=== PATIENT | female | born 1985 | race Caucasian/White ===

== ENCOUNTER 2019-11-26 21:47 | Inpatient (IN) | payer MEDICARE ==
[~2019-11-26] VITALS: Ht 162.6 cm; Wt 98.6 kg
--- NOTE | 2019-11-26 21:53 | PHYS DOC ---
Past History Past Medical History: Anemia, Anxiety, High Cholesterol, Other Past Surgical History: Hysterectomy Smoking: Cigarettes General Adult EDM: Chief Complaint: CHEST PAIN HPI: HPI: ".. I ve been having chest pain off and on.. but today it been narciso steady.. the last 4 hrs.. ..My chest just feels tight.. ".." It feel s like someone squeezing my chest.." Patient is a 34 year old female who presents with above complaints and chest pain. No previous history of cardiac problems. Patient discomfort or pain is rated as moderate. There is some mild pleuritic component. Pain is located in center chest and seen radiates to the shoulders. Patient denies previous history of DVTs or coagulopathy. Patient did have a hysterectomy approximately 3 weeks ago at [facility]. No active bleeding postatherectomy. Suture sites appear to be healing well. 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 No history of travel .. No history of fever or chills. No recent travel outside the [facility]. Review of Systems: Review of Systems: Constitutional: Denies fever or chills Eyes: Denies change in visual acuity HENT: Denies nasal congestion or sore throat Respiratory: Denies cough or shortness of breath Cardiovascular: Complaints of chest pain , tightness GI: Denies abdominal pain, nausea, vomiting, bloody stools or diarrhea : Denies dysuria Musculoskeletal: Denies back pain or joint pain Integument: Denies rash Neurologic: Denies headache, focal weakness or sensory changes Endocrine: Denies polyuria or polydipsia Lymphatic: Denies swollen glands Psychiatric: Denies depression or anxiety Heart Score: HEART Score for Chest Pain: HEART Score for Chest Pain Response (Comments) Value History Slighlty/Non-Suspicious 0 ECG Nonspecific Repolarizatio 1 Age < 45 0 Risk Factors 1 or 2 Risk Factors 1 Troponin < Normal Limit 0 Total 2 Risk Factors: Risk Factors: DM, Current or recent (<one month) smoker, HTN, HLP, family history of CAD, obesity. Risk Scores: Score 0 - 3: 2.5% MACE over next 6 weeks - Discharge Home Score 4 - 6: 20.3% MACE over next 6 weeks - Admit for Clinical Observation Score 7 - 10: 72.7% MACE over next 6 weeks - Early Invasive Strategies Family History: Family History: Noncontributory to presentation Current Medications: Current Meds: See nursing for home meds. Allergies: Allergies: Morphine makes her angry Physical Exam: PE: Constitutional: Moderate acute distress, non-toxic appearance. [] HENT: Normocephalic, atraumatic, bilateral external ears normal, oropharynx moist, no oral exudates, nose normal. [] Eyes: PERRLA, EOMI, conjunctiva normal, no discharge. [] Neck: Normal range of motion, no tenderness, supple, no stridor. [] Cardiovascular: Tachycardia heart rate regular rhythm, no murmur [] Lungs & Thorax: Bilateral breath sounds equal apex few scattered wheezes auscultation [] Abdomen: Bowel sounds normal, soft, no tenderness, no masses, no pulsatile masses. Obese. Healing surgery sites Skin: Warm, dry, no erythema, no rash. [] Back: No tenderness, no CVA tenderness. [] Extremities: No tenderness, no cyanosis, no clubbing, ROM intact, no edema. No cording appreciated Neurologic: Alert and oriented X 3, normal motor function, normal sensory function, no focal deficits noted. [] Psychologic: Affect anxious, judgement normal, mood normal. [] EKG: EKG: My interpretation of EKG shows a sinus rhythm at 92 bpm. Nonspecific T wave changes inferior leads. No findings acute STEMI with contralateral changes. [] Radiology/Procedures: Radiology/Procedures: [][place] [address] IMAGING REPORT Signed PATIENT: ROBI OTTO ACCOUNT: [id number] : 1985 LOCATION: [address] [place] [address] AGE: 34 SEX: F EXAM STATUS: ADM IN ORD. PHYSICIAN: SHANI GARCIA MD REASON: CP, shortness of air PROCEDURE: CHEST PA & LATERAL INDICATION: Reason: CP, shortness of air / Spl. Instructions: / History: COMPARISON: None. FINDINGS: 2 view of chest obtained. Mild interstitial and groundglass opacities bilaterally. Cardiac silhouette is unremarkable. IMPRESSION: * Mild interstitial and groundglass opacities bilaterally. Could be from mild edema or interstitial infiltrate. Electronically signed by: Laurie Wayne MD (11/27/2019 3:46 AM) [id number] DICTATED AND SIGNED BY: LAURIE WAYNE MD DATE: 11/27/19 0346 CC: SHANI GARCIA MD; ALEXANDER KIRBY MD; TANG REEVES MD ~ [address] [place] [id number] IMAGING REPORT Signed PATIENT: ROBI OTTO ACCOUNT: [id number] : 1985 LOCATION: ER AGE: 34 SEX: F EXAM STATUS: REG ER ORD. PHYSICIAN: SHANI GARCIA MD REASON: DYSPNEA, CP Omni 350 100cc PROCEDURE: CT ANGIOGRAPHY CHEST INDICATION: Reason: DYSPNEA, CP Omni 350 100cc / Spl. Instructions: / History: COMPARISON: None. TECHNIQUE: Axial CT images obtained through the chest. Intravenous contrast utilized. Angiogram 3D images processed per protocol. One or more of the following individualized dose reduction techniques were utilized for this examination: 1. Automated exposure control; 2. Adjustment of the mA and/or kV according to patient size; 3. Use of iterative reconstruction technique. FINDINGS: Mild interstitial opacities. There is also some mild groundglass component. Regions of nodularity most prominent at the lung bases. Enlarged lymph nodes are identified within the mediastinum and hilum. For example right hilum measuring up to 15 mm short axis. No thoracic aortic aneurysm. No central pulmonary embolus. Some subsegmental vessels are obscured by motion and small vessel size. Mild loss of height T12 vertebral body. IMPRESSION: No central pulmonary embolus. Mild interstitial opacities and groundglass opacities bilaterally. Could be secondary to mild edema. A component of small airway inflammation from pneumonitis can also have this appearance. Course & Med Decision Making: Course & Med Decision Making Pertinent Labs and Imaging studies reviewed. (See chart for details) Discussed presentation, testing and tx. plan with Dr. KIRBY- request COVID swab. Admit rule out GA and Atypical Pneumonia. Impression: 1. Chest Pain 2. Elevated D-dimer 1.,88 3. Hx. Hysterectomy - 3 weeks ago-OPR 4. Leukocytosis 11.7 5. Mild Hypokalemia 3.3 6. DM Glucose 121 7. Mediastinal adenopathy and atypical infiltrate-atypical pneumonia 8. Tobacco use 9. Obesity 10. COVID test pending [] Dragon Disclaimer: Dragon Disclaimer: This electronic medical record was generated, in whole or in part, using a voice recognition dictation system. Departure Departure: Disposition: 01 HOME/RESIDENCE PRIOR TO ADM Condition: STABLE Referrals: TANG REEVES MD (PCP) Justification of Admission: Justification of Admission: Justification of Admission Dx: Yes Comments: chest pain Dragon Disclaimer This chart was dictated in whole or in part using Voice Recognition software in a busy, high-work load, and often noisy Emergency Department environment. It may contain unintended and wholly unrecognized errors or omissions. Dragon Disclaimer This chart was dictated in whole or in part using Voice Recognition software in a busy, high-work load, and often noisy Emergency Department environment. It may contain unintended and wholly unrecognized errors or omissions. SHANI GARCIA MD Nov 26, 2019 21:53
[2019-11-26] MEDS ORDERED: IV RINGERS SOLUTION,LACTATED 1,000 ML IV SCH (22:15)
[2019-11-26] MEDS ORDERED: ASPIRIN CHEWABLE 81 MG TABLET. PO ONE (22:15)
[2019-11-26 22:22] LABS: BASO # 0.1 x10^3/uL (0.0-0.2); BASO % 0 % (0-3); EOS % 8 % (0-3); HEMOGLOBIN 13.3 g/dL (12.0-15.5); LYMPH # 3.2 x10^3/uL (1.0-4.8); LYMPH % 27 % (24-48); MEAN CORPUSCULAR HEMOGLOBIN 30 pg (25-35); MEAN CORPUSCULAR HGB CONC 33 g/dL (31-37); MEAN CORPUSCULAR VOLUME 89 fL (79-100); MONO # 0.9 x10^3/uL (0.0-1.1); MONO % 8 % (0-9); NEUT # 6.6 x10^3uL (1.8-7.7); NEUT % 57 % (31-73); PLATELET COUNT 274 x10^3/uL (140-400); RED BLOOD COUNT 4.51 x10^6/uL (3.50-5.40); WHITE BLOOD COUNT 11.7 x10^3/uL (4.0-11.0)
[2019-11-26 22:25] LABS: CALCIUM 8.5 mg/dL (8.5-10.1); CREATININE 0.7 mg/dL (0.6-1.0); GFR 94.7; POTASSIUM 3.3 mmol/L (3.5-5.1)
[2019-11-26 22:37] LABS: ALBUMIN 3.5 g/dL (3.4-5.0); DIRECT BILIRUBIN 0.1 mg/dL (0.0-0.2); TOTAL BILIRUBIN 0.4 mg/dL (0.2-1.0); TOTAL PROTEIN 7.5 g/dL (6.4-8.2)
[2019-11-26 23:24] LABS: AMPHETAMINE/METHAMPHETAMINE NEG (NEG); BARBITURATES NEG (NEG); BENZODIAZEPINES NEG (NEG); CANNABINOIDS NEG (NEG); COCAINE NEG (NEG); METHADONE NEG (NEG); OPIATES NEG (NEG); PHENCYCLIDINE NEG (NEG)
[2019-11-26 23:38] LABS: BILIRUBIN,URINE NEG (NEG); CLARITY,URINE CLEAR; COLOR,URINE YELLOW; GLUCOSE,URINE NEG (NEG)
[2019-11-26 23:39] LABS: BACTERIA,URINE FEW /HPF (0-FEW); NITRITE,URINE NEG (NEG); SQUAMOUS EPITHELIAL CELL,UR MOD /LPF; UROBILINOGEN,URINE 0.2 mg/dL (0.2 mg/dL); WBC,URINE 0 /HPF (0-4)
[2019-11-26] MEDS ORDERED: ENOXAPARIN ** NOTE DOSE ** SYRINGE SQ ONE (23:54)
[2019-11-26] MEDS ORDERED: MORPHINE SULFATE 10 MG/ML SYRINGE. ONE (23:55)
[2019-11-27] MEDS ORDERED: ENOXAPARIN ** NOTE DOSE ** SYRINGE SQ ONE
[2019-11-27] MEDS ORDERED: MORPHINE SULFATE 10 MG/ML SYRINGE. SQ ONE
[2019-11-27] MEDS ORDERED: IOHEXOL 350 MG/ML 100 ML VIAL. IV ONE (00:15)
[2019-11-27] MEDS ORDERED: CONTRAST GIVEN. MC PRN (00:15)
--- NOTE | 2019-11-27 01:01 | RAD ---
INDICATION: Reason: DYSPNEA, CP Omni 350 100cc / Spl. Instructions: / History: COMPARISON: None. TECHNIQUE: Axial CT images obtained through the chest. Intravenous contrast utilized. Angiogram 3D images processed per protocol. One or more of the following individualized dose reduction techniques were utilized for this examination: 1. Automated exposure control; 2. Adjustment of the mA and/or kV according to patient size; 3. Use of iterative reconstruction technique. FINDINGS: Mild interstitial opacities. There is also some mild groundglass component. Regions of nodularity most prominent at the lung bases. Enlarged lymph nodes are identified within the mediastinum and hilum. For example right hilum measuring up to 15 mm short axis. No thoracic aortic aneurysm. No central pulmonary embolus. Some subsegmental vessels are obscured by motion and small vessel size. Mild loss of height T12 vertebral body. IMPRESSION: No central pulmonary embolus. Mild interstitial opacities and groundglass opacities bilaterally. Could be secondary to mild edema. A component of small airway inflammation from pneumonitis can also have this appearance. There are some regions of nodularity within the bilateral lungs. In a patient of this age this is most commonly from round atelectasis or round pneumonia but if the patient does have risk factors for neoplasm a follow-up could be obtained to ensure no growth. Enlarged lymph nodes in the mediastinum. Could be reactive but follow-up could be obtained to ensure no growth to exclude neoplastic causes. Electronically signed by: Soy Rivera MD (11/27/2019 12:58 AM) [id number]
[2019-11-27] MEDS ORDERED: ACETAMINOPHEN 325 MG TABLET PO PRN (01:15)
[2019-11-27] MEDS ORDERED: AZITHROMYCIN 250 MG TABLET. PO ONE (01:30)
[2019-11-27] MEDS ORDERED: cefTRIAXone SODIUM 1 GM VIAL ONE (02:17)
[2019-11-27] MEDS ORDERED: IV NORMAL SALINE 50ML 50 ML ONE (02:17)
--- NOTE | 2019-11-27 03:49 | RAD ---
INDICATION: Reason: CP, shortness of air / Spl. Instructions: / History: COMPARISON: None. FINDINGS: 2 view of chest obtained. Mild interstitial and groundglass opacities bilaterally. Cardiac silhouette is unremarkable. IMPRESSION: * Mild interstitial and groundglass opacities bilaterally. Could be from mild edema or interstitial infiltrate. Electronically signed by: Soy Rivera MD (11/27/2019 3:46 AM) [id number]
[2019-11-27] MEDS ORDERED: IPRATRPIUM/ALBUTEROL 0.5/2.5MG 3 ML NEBU. ONE (04:43)
[2019-11-27] MEDS ORDERED: POTASSIUM CHLORIDE 20 MEQ TABLET.ER. PO ONE ×2 (07:10→13:30)
--- NOTE | 2019-11-27 07:20 | EKG ---
[address] [address] Test Date: 2019-11-26 Test Time: 21:53:02 Pat Name: ROBI OTTO Department: Room: [place] [address] Gender: F Release Coordinator: : 1985 Requested By: SHANI GARCIA Order Number: [id number] Reading MD: Malcolm Vasquez MD Measurements Intervals [place] Rate: 92 P: 15 SD: 150 QRS: 38 QRSD: 80 T: -43 QT: 326 QTc: 408 Interpretive Statements SINUS RHYTHM Electronically Signed On 11-27-2019 12:36:07 CDT by Malcolm Vasquez MD
--- NOTE | 2019-11-27 07:45 | NUR ---
PT ARRIVED TO UNIT VIA EMS. PATIENT IS PLEASANT AND COOPERATIVE AT ADMISSION. PTS VS OBTAINED AND ARE STABLE. PATIENT IS OFFERED FOOD AND DRINK AND ACCEPTS. PT STARTED ON REGULAR DIET. DR WRIGHT NOTIFIED OF ADMISSION AND ORDERERS RECEIVED FOR 75MCG OF FENTANYL PRN Q4H, LOVENOX 40MG DAILY FOR VTE PROPHYLAXIS, AND ZOFRAN 4MG PRN Q6H NEEDED FOR NAUSEA. PATIENT IS RESTING IN ROOM AT THIS TIME. SECOND TROP TO BE DRAWN AT 0845. PT IS IN COVID PRECAUTIONS. WILL CONTINUE TO MONITOR.
[2019-11-27] MEDS ORDERED: ASPIRIN CHEWABLE 81 MG TABLET. PO ONE (08:00)
[2019-11-27] MEDS ORDERED: IPRATRPIUM/ALBUTEROL 0.5/2.5MG 3 ML NEBU. NEB SCH (08:00)
--- NOTE | 2019-11-27 08:43 | PDOC2 ---
CARDIAC CONSULT DATE OF CONSULT DOS: DATE: 11/27/19 TIME: 08:39 REASON FOR CONSULT Reason for Consult CP REFERRING PHYSICIAN Referring Physician Dr. Moore SOURCE Source: Chart review, Patient HPI History of Present Illness This is a 34 yo female who presented secondary to chest tightness. Inability to take a deep breath. Patient reports this started yesterday. Chest tightness worse with deep breathing. Chest slightly tender upon palpitation. No associated dizziness, diaphoresis, palpitations, or nausea/vomiting. Doesnt necessarily feel SOA, just feels as if she cannot take a deep breath. No recent fevers or illness. CT chest with bilateral infiltrates. 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 ) Lives: with Family CURRENT MEDICATIONS Current Medications Current Medications Aspirin (Aspirin Chewable) 324 mg 1X ONCE PO Last administered on 11/26/19at 23:48; Start 11/26/19 at 22:15; Stop 11/26/19 at 22:38; Status DC Lactated Ringer's 1,000 ml @ 1,000 mls/hr Q1H IV Last administered on 11/27/19at 00:11; Start 11/26/19 at 22:15; Stop 11/26/19 at 23:14; Status DC Enoxaparin Sodium (Lovenox 100mg Syringe) 100 mg STK-MED ONCE SQ ; Start 11/26/19 at 23:54; Stop 11/26/19 at 23:54; Status DC Morphine Sulfate (Morphine 10mg Syringe) 10 mg 1X ONCE SQ ; Start 11/27/19 at 00:00; Stop 11/27/19 at 00:01; Status DC Enoxaparin Sodium (Lovenox 100mg Syringe) 100 mg 1X ONCE SQ Last administered on 11/27/19at 00:12; Start 11/27/19 at 00:00; Stop 11/27/19 at 00:02; Status DC Morphine Sulfate (Morphine 10mg Syringe) 10 mg STK-MED ONCE .ROUTE ; Start 11/26/19 at 23:55; Stop 11/26/19 at 23:55; Status DC Iohexol (Omnipaque 350 Mg/ml) 100 ml 1X ONCE IV Last administered on 11/27/19at 00:20; Start 11/27/19 at 00:15; Stop 11/27/19 at 00:16; Status DC Info (Do NOT chart on this entry -- for MONITORING) 1 each PRN DAILY PRN MC SEE COMMENTS; Start 11/27/19 at 00:15; Stop 11/29/19 at 00:14 Fentanyl Citrate (Fentanyl 2ml Vial) 75 mcg 1X ONCE IVP Last administered on 11/27/19at 00:13; Start 11/27/19 at 00:15; Stop 11/27/19 at 01:03; Status DC Ondansetron HCl (Zofran) 4 mg PRN Q4HRS PRN IVP NAUSEA/VOMITING; Start 11/27/19 at 01:15; Stop 11/28/19 at 01:14 Acetaminophen (Tylenol) 650 mg PRN Q4HRS PRN PO FEVER > 100.3'F; Start 11/27/19 at 01:15; Stop 11/28/19 at 01:14 Albuterol/ Ipratropium (Duoneb) 3 ml RTQID NEB ; Start 11/27/19 at 08:00; Stop 11/27/19 at 07:26; Status DC Aspirin (Aspirin Chewable) 81 mg DAILYWBKFT ONCE PO ; Start 11/27/19 at 08:00; Stop 11/27/19 at 08:01; Status DC Azithromycin (Zithromax) 250 mg DAILY PO ; Start 11/27/19 at 09:00; Status UNV Enoxaparin Sodium (Lovenox 100mg Syringe) 100 mg Q12H SQ ; Start 11/27/19 at 12:00 Azithromycin (Zithromax) 250 mg HS PO ; Start 11/27/19 at 21:00 Azithromycin (Zithromax) 500 mg 1X ONCE PO Last administered on 11/27/19at 02:20; Start 11/27/19 at 01:30; Stop 11/27/19 at 01:31; Status DC Ceftriaxone Sodium 1 gm/ Sodium Chloride 50 ml @ 100 mls/hr 1X ONCE IV Last administered on 11/27/19at 02:20; Start 11/27/19 at 01:30; Stop 11/27/19 at 01:59; Status DC Sodium Chloride 50 ml @ As Directed STK-MED ONCE .ROUTE ; Start 11/27/19 at 02:17; Stop 11/27/19 at 02:17; Status DC Ceftriaxone Sodium (Rocephin) 1 gm STK-MED ONCE .ROUTE ; Start 11/27/19 at 02:17; Stop 11/27/19 at 02:17; Status DC Albuterol/ Ipratropium (Duoneb) 3 ml STK-MED ONCE .ROUTE ; Start 11/27/19 at 04:43; Stop 11/27/19 at 04:43; Status DC Nicotine (Nicoderm Cq 21mg Patch) 1 patch DAILY TD ; Start 11/27/19 at 07:15 Potassium Chloride (Klor-Con) 40 meq 1X ONCE PO Last administered on 11/27/19at 07:24; Start 11/27/19 at 07:10; Stop 11/27/19 at 07:11; Status DC Albuterol/ Ipratropium (Combivent Respimat 20-100 Mcg) 1 puff RTQID INH ; Start 11/27/19 at 08:00 ALLERGIES Allergies: Coded Allergies: morphine (Verified Allergy, Unknown, 11/27/19) ROS Review of Systems 14 point ROS conducted with pertinent positives noted above in hPI PHYSICAL EXAM General: Alert, Oriented X3, Cooperative, No acute distress HEENT: Atraumatic Heart: Regular rate Abdomen: Soft Extremities: No edema Neuro: Normal speech Psych/Mental Status: Mental status NL, Mood NL MUSCULOSKELETAL: No deformity VITALS Vital Signs Vital Signs Date Time Temp Pulse Resp B/P (MAP) Pulse Ox O2 Delivery O2 Flow Rate FiO2 11/27/19 06:30 78 14 125/67 (86) 96 Room Air 11/26/19 21:50 99.0 LABS LABS Laboratory Tests Test 11/26/19 21:55 11/26/19 22:30 11/26/19 22:49 White Blood Count 11.7 x10^3/uL (4.0-11.0) Red Blood Count 4.51 x10^6/uL (3.50-5.40) Hemoglobin 13.3 g/dL (12.0-15.5) Hematocrit 40.0 % (36.0-47.0) Mean Corpuscular Volume 89 fL (79-100) Mean Corpuscular Hemoglobin 30 pg (25-35) Mean Corpuscular Hemoglobin Concent 33 g/dL (31-37) Red Cell Distribution Width 15.0 % (11.5-14.5) Platelet Count 274 x10^3/uL (140-400) Neutrophils (%) (Auto) 57 % (31-73) Lymphocytes (%) (Auto) 27 % (24-48) Monocytes (%) (Auto) 8 % (0-9) Eosinophils (%) (Auto) 8 % (0-3) Basophils (%) (Auto) 0 % (0-3) Neutrophils # (Auto) 6.6 x10^3uL (1.8-7.7) Lymphocytes # (Auto) 3.2 x10^3/uL (1.0-4.8) Monocytes # (Auto) 0.9 x10^3/uL (0.0-1.1) Eosinophils # (Auto) 1.0 x10^3/uL (0.0-0.7) Basophils # (Auto) 0.1 x10^3/uL (0.0-0.2) Prothrombin Time 9.7 SEC (9.4-11.4) Prothromb Time International Ratio 0.9 (0.9-1.1) Activated Partial Thromboplast Time 28 SEC (23-33) D-Dimer (Rose) 1.88 mg/L (0.00-0.50) Sodium Level 139 mmol/L (136-145) Potassium Level 3.3 mmol/L (3.5-5.1) Chloride Level 102 mmol/L (98-107) Carbon Dioxide Level 23 mmol/L (21-32) Anion Gap 14 (6-14) Blood Urea Nitrogen 8 mg/dL (7-20) Creatinine 0.7 mg/dL (0.6-1.0) Estimated GFR (Cockcroft-Gault) 94.7 Glucose Level 121 mg/dL (70-99) Calcium Level 8.5 mg/dL (8.5-10.1) Magnesium Level 2.0 mg/dL (1.8-2.4) Total Bilirubin 0.4 mg/dL (0.2-1.0) Direct Bilirubin 0.1 mg/dL (0.0-0.2) Aspartate Amino Transf (AST/SGOT) 14 U/L (15-37) Alanine Aminotransferase (ALT/SGPT) 26 U/L (14-59) Alkaline Phosphatase 148 U/L (46-116) Creatine Kinase 60 U/L (26-192) Troponin I Quantitative < 0.017 ng/mL (0-0.055) VX-Tkz-I-Type Natriuretic Peptide 197 pg/mL (0-124) Total Protein 7.5 g/dL (6.4-8.2) Albumin 3.5 g/dL (3.4-5.0) Lipase 142 U/L (73-393) Urine Collection Type Unknown Urine Color Yellow Urine Clarity Clear Urine pH 6.5 Urine Specific [place] <=1.005 Urine Protein Neg (NEG-TRACE) Urine Glucose (UA) Neg mg/dL (NEG) Urine Ketones (Stick) Neg mg/dL (NEG) Urine Blood Small (NEG) Urine Nitrite Neg (NEG) Urine Bilirubin Neg (NEG) Urine Urobilinogen Dipstick 0.2 mg/dL (0.2 mg/dL) Urine Leukocyte Esterase Neg (NEG) Urine RBC 1-2 /HPF (0-2) Urine WBC 0 /HPF (0-4) Urine Squamous Epithelial Cells Mod /LPF Urine Bacteria Few /HPF (0-FEW) Urine Opiates Screen Neg (NEG) Urine Methadone Screen Neg (NEG) Urine Barbiturates Neg (NEG) Urine Phencyclidine Screen Neg (NEG) Urine Amphetamine/Methamphetamine Neg (NEG) Urine Benzodiazepines Screen Neg (NEG) Urine Cocaine Screen Neg (NEG) Urine Cannabinoids Screen Neg (NEG) Urine Ethyl Alcohol Neg (NEG) Bedside Urine HCG, Qualitative hcg negative (Negative) ASSESSMENT/PLAN Assessment/Plan 1. Chest pain, atypical. Initial trop negative. EKG without significant acute changes. CT with bilateral infiltrates. NT pro BNP only mildly elevated. Doubt overt HF, but can trail dose of Lasix to note clinical response. Awaiting COVID 2. Elevated d-dimer; CTA negative for PE 3. Hypokalemia; replaced 4. Tobaccoism; discussed/encouraged cessation 5. H/o meth use; has been clean. UDS negative Recommendations Trend trop Lipids, TSH Procalc Await COVID Consider outpatient echo Supportive care JOSÉ BENAVIDEZ APRN 23, 2020 08:43
[2019-11-27 08:53] VITALS: BP 106/75
[2019-11-27] MEDS ORDERED: MORPHINE SULFATE 4 MG/ML DISP.SYRIN. IV PRN (09:00)
[2019-11-27] MEDS ORDERED: AZITHROMYCIN 250 MG TABLET. PO SCH ×2 (09:00→21:00)
[2019-11-27] MEDS: NICOTINE 21MG PATCH. TD SCH (09:05)
[2019-11-27] MEDS: IPRATROPIUM/ALBUTEROL 20/100mcg/INH INHALER. INH SCH ×4 (09:10→19:50)
[2019-11-27] MEDS ORDERED: ENOXAPARIN ** NOTE DOSE ** SYRINGE SQ SCH (12:00)
[2019-11-27] MEDS ORDERED: FUROSEMIDE 20 MG/2 ML VIAL IVP ONE (13:30)
[2019-11-27 13:38] VITALS: BP 97/76
--- NOTE | 2019-11-27 16:06 | HP ---
ADMIT DATE: HISTORY OF PRESENT ILLNESS: The patient is a 34-year-old female patient who presented to the Emergency Room with chest pain that has been going on and off, but when she came to the Emergency Room, she had been steady for the last 4 hours prior to arrival. She complained that her chest feels tight, she feels like "someone is squeezing my chest." She has no previous history of cardiac disease. Her discomfort or pain is rated as moderate. There is some mild pleuritic component. The pain is located in the center of the chest and radiates to the shoulders. She denies any history of DVT or coagulopathy, but had a hysterectomy approximately 2 weeks ago at [facility]. No active bleeding post-hysterectomy. Suture sites appear to be healing well. 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 She has no history of trauma or recent travel. No history of fever or chills. She has not traveled outside the [place] area. She was extensively investigated in the Emergency Room and found to have mild leukocytosis with a white cell count 11,700. Her chemistry showed hypokalemia and slightly elevated beta natriuretic peptide. Her D-dimer was high at 1.88; however, her prothrombin time, INR and aPTT are all within normal range. Urinalysis was essentially unremarkable and toxic screen was negative. She did have a chest x-ray which showed mild interstitial and ground glass opacities bilaterally, could be from mild edema, interstitial infiltrate. The CT angio of the chest showed that the patient has no central pulmonary embolus. Mild interstitial opacities and ground glass opacities bilaterally, could be secondary to mild edema. A component of small airway inflammation from pneumonia can also have this appearance. There are some regions of nodularity within the bilateral lungs; in a patient this age, this is most commonly from round atelectasis or round pneumonia, but if the patient does have risk factors for neoplasm, a followup could be obtained to ensure no growth. Enlarged lymph nodes in the mediastinum could be reactive, but followup could be obtained to ensure no growth to exclude neoplastic causes. The patient was admitted with pneumonia which could be atypical versus COVID associated pneumonia. She has other problems which include elevated D-dimer; however, the CT angio was negative for pulmonary emboli; mild leukocytosis due to pneumonia, hypokalemia, mediastinal lymphadenopathy and atypical infiltrate, atypical pneumonia. She also has obviously tobacco abuse. PAST MEDICAL HISTORY: Significant for hyperlipidemia. PAST SURGICAL HISTORY: Significant for hysterectomy and cholecystectomy. FAMILY HISTORY: Positive for hypertension. SOCIAL HISTORY: She lives with her family. She has a son and a daughter. She smokes a pack a day, drinks alcohol occasionally. She used crystal meth before, has been clean for almost 12 years now. REVIEW OF SYSTEMS: As per history of present illness. PHYSICAL EXAMINATION: GENERAL: On arrival to the Emergency Room, she looked well and was clearly in no apparent respiratory distress. No pallor, jaundice, cyanosis or thyromegaly. No jugular venous distention. No lower limb edema. VITAL SIGNS: Her heart rate was 99, blood pressure was 127/76, temperature was 99, respiratory rate was 18 and oxygen saturation was 98% on room air. HEAD, EYES, EARS, NOSE AND THROAT: Showed normocephalic, atraumatic. NECK: Supple. HEART: Showed normal first and second heart sounds. No gallop or murmur. CHEST: Clear to auscultation. No crepitation or rhonchi. ABDOMEN: Distended, soft, nontender. NEUROLOGIC: She is grossly intact. LABORATORY DATA: Her lab work showed a white cell count of 11,700, hemoglobin 13.3, hematocrit 40, MCV 89 and platelet count 274,000 with normal manual differential. Her serum sodium was 139, potassium 3.3, chloride 102, bicarbonate 23, anion gap of 14, BUN 8, creatinine 0.7, estimated GFR was 94 mL per minute. Her glucose was 121, calcium was 8.5, magnesium 2. Total bilirubin, AST, ALT, alkaline phosphatase were normal. Total protein was 7.5, albumin was 3.5, serum lipase was 142 and her procalcitonin was less than 0.10. Her 2 sets of cardiac enzymes showed troponin to be less than 0.017. Her prothrombin time, INR and aPTT are normal. D-dimer was 1.88. Urinalysis was essentially negative and toxicology screen was negative. Her chest x-ray showed mild interstitial and ground glass opacities bilaterally, could be from mild edema or interstitial infiltrate; and the CT angio showed no evidence of central pulmonary emboli, mild interstitial opacities and ground glass opacities bilaterally, could be secondary to mild edema, a component of small airway inflammation from pneumonitis can also have this appearance. There are some regions of nodularity within the bilateral lungs; in a patient of this age, this is most commonly from round atelectasis or round pneumonia, but if the patient does have risk factors for neoplasm, a followup could be obtained to ensure benignity. PLAN: To continue with IV antibiotic in the form of Zithromax and ceftriaxone. Continue with DVT prophylaxis. I will add dexamethasone and evaluate her tomorrow and if her pain is much better controlled and she remained stable, she can be discharged home to continue with oral antibiotics. JEANNE WRIGHT MD DR: JUNAID/michael JOB#: [id number] / [id number]
[2019-11-27] MEDS: ONDANSETRON PF 4 MG/2 ML VIAL. IVP PRN ×2 (16:33→18:53)
[2019-11-27] MEDS: DEXAMETHASONE 4 MG TABLET PO SCH (16:43)
[2019-11-27 19:20] VITALS: BP 115/50
[2019-11-27] MEDS: METOCLOPRAMIDE HCL 10 MG/2 ML VIAL. IVP PRN (19:50)
[2019-11-27] MEDS: LACTOBACILLUS RHAMNOSUS GG 1 CAPSULE. PO SCH (19:51)
[2019-11-27] MEDS ORDERED: ENOXAPARIN 40 MG/0.4 ML SYRINGE. SQ SCH (21:00)
--- NOTE | 2019-11-27 21:21 | PN ---
DATE: 11/27/2019 SUBJECTIVE: The patient is resting almost flat in bed, in no apparent distress. His main complaint is chest pain, difficulty taking a deep breath. She has cough, is mostly dry. Denied any chills, rigors or fever. PHYSICAL EXAMINATION: GENERAL: When I examined her this morning, she looked well and was clearly in no apparent respiratory distress. No pallor, jaundice, cyanosis or thyromegaly. No jugular venous distention or limb edema. VITAL SIGNS: Her heart rate was 97, blood pressure was 97/76, temperature 97.2, respiratory rate was 15 and oxygen saturation was 98% on room air. HEAD, EYES, EARS, NOSE AND THROAT: Normocephalic, atraumatic. NECK: Supple. HEART: Normal first and second heart sounds. No gallop or murmur. CHEST: Clear to auscultation. No crepitation or rhonchi. ABDOMEN: Distended, soft, nontender. NEUROLOGIC: She is grossly intact. LABORATORY DATA: No lab works were done this morning. ASSESSMENT AND PLAN: Community-acquired pneumonia, for which she will continue on IV ceftriaxone and Zithromax. Elevated D-dimer ____ and questionable COVID associated pneumonia. Other medical problems include hyperlipidemia, hypokalemia, tobacco abuse and morbid obesity. I will repeat all the lab works. Meanwhile, we will continue with IV ceftriaxone and Zithromax and evaluate her again tomorrow morning and if she is feeling much better, she can be discharged home. JEANNE WRIGHT MD DR: JUNAID/michael JOB#: [id number] / [id number]
[2019-11-27 23:20] VITALS: BP 101/67
[2019-11-28] MEDS ORDERED: ONDANSETRON PF 4 MG/2 ML VIAL. IVP PRN (01:30)
[2019-11-28 02:10] VITALS: BP 101/64
[2019-11-28] MEDS: METOCLOPRAMIDE HCL 10 MG/2 ML VIAL. IVP PRN ×2 (03:11→09:00)
[2019-11-28 06:10] VITALS: BP 121/67
[2019-11-28] MEDS ORDERED: CELE200C PO (06:43)
[2019-11-28] MEDS ORDERED: BUPR150T11 PO (06:43)
[2019-11-28] MEDS ORDERED: OLAN10TA3 PO (06:43)
[2019-11-28] MEDS ORDERED: HYDR50CA PO (06:43)
[2019-11-28] MEDS ORDERED: LAMO100T37 PO (06:43)
[2019-11-28] MEDS ORDERED: LAMO200T6 PO (06:43)
[2019-11-28 07:42] LABS: HEMATOCRIT 39.3 % (36.0-47.0); HEMOGLOBIN 13.1 g/dL (12.0-15.5); RED BLOOD COUNT 4.46 x10^6/uL (3.50-5.40); RED CELL DISTRIBUTION WIDTH 14.7 % (11.5-14.5); WHITE BLOOD COUNT 10.1 x10^3/uL (4.0-11.0)
[2019-11-28] MEDS: IPRATROPIUM/ALBUTEROL 20/100mcg/INH INHALER. INH SCH ×3 (08:00→16:00)
[2019-11-28] MEDS: NICOTINE 21MG PATCH. TD SCH (08:48)
[2019-11-28] MEDS: DEXAMETHASONE 4 MG TABLET PO SCH (08:48)
[2019-11-28] MEDS: LACTOBACILLUS RHAMNOSUS GG 1 CAPSULE. PO SCH (08:48)
[2019-11-28 08:50] LABS: ALBUMIN 3.2 g/dL (3.4-5.0); ALBUMIN/GLOBULIN RATIO 0.8 (1.0-1.7); CALCIUM 8.9 mg/dL (8.5-10.1); CREATININE 0.7 mg/dL (0.6-1.0); GFR 94.7; POTASSIUM 3.6 mmol/L (3.5-5.1); TOTAL BILIRUBIN 0.3 mg/dL (0.2-1.0)
--- NOTE | 2019-11-28 08:53 | PDOC ---
CARDIO Progress Notes Date & Time Date of Service DATE: 11/28/19 TIME: 08:51 Time of Evaluation 08:51 Subjective Notes still having difficulty taking deep breath Vitals Vitals Vital Signs Date Time Temp Pulse Resp B/P (MAP) Pulse Ox O2 Delivery O2 Flow Rate FiO2 11/28/19 06:10 97.8 83 18 121/67 (85) 95 Room Air Weight Weight [ ] Input and Output I.O. Intake and Output 11/28/19 07:00 Intake Total 2453 ml Balance 2453 ml Intake Oral 2400 ml IV Total 53 ml # Voids 3 Laboratory Labs Laboratory Tests Test 11/26/19 21:55 11/26/19 22:30 11/26/19 22:49 11/27/19 09:52 White Blood Count 11.7 x10^3/uL (4.0-11.0) Red Blood Count 4.51 x10^6/uL (3.50-5.40) Hemoglobin 13.3 g/dL (12.0-15.5) Hematocrit 40.0 % (36.0-47.0) Mean Corpuscular Volume 89 fL (79-100) Mean Corpuscular Hemoglobin 30 pg (25-35) Mean Corpuscular Hemoglobin Concent 33 g/dL (31-37) Red Cell Distribution Width 15.0 % (11.5-14.5) Platelet Count 274 x10^3/uL (140-400) Neutrophils (%) (Auto) 57 % (31-73) Lymphocytes (%) (Auto) 27 % (24-48) Monocytes (%) (Auto) 8 % (0-9) Eosinophils (%) (Auto) 8 % (0-3) Basophils (%) (Auto) 0 % (0-3) Neutrophils # (Auto) 6.6 x10^3uL (1.8-7.7) Lymphocytes # (Auto) 3.2 x10^3/uL (1.0-4.8) Monocytes # (Auto) 0.9 x10^3/uL (0.0-1.1) Eosinophils # (Auto) 1.0 x10^3/uL (0.0-0.7) Basophils # (Auto) 0.1 x10^3/uL (0.0-0.2) Prothrombin Time 9.7 SEC (9.4-11.4) Prothromb Time International Ratio 0.9 (0.9-1.1) Activated Partial Thromboplast Time 28 SEC (23-33) D-Dimer (Rose) 1.88 mg/L (0.00-0.50) Sodium Level 139 mmol/L (136-145) Potassium Level 3.3 mmol/L (3.5-5.1) Chloride Level 102 mmol/L (98-107) Carbon Dioxide Level 23 mmol/L (21-32) Anion Gap 14 (6-14) Blood Urea Nitrogen 8 mg/dL (7-20) Creatinine 0.7 mg/dL (0.6-1.0) Estimated GFR (Cockcroft-Gault) 94.7 Glucose Level 121 mg/dL (70-99) Calcium Level 8.5 mg/dL (8.5-10.1) Magnesium Level 2.0 mg/dL (1.8-2.4) Total Bilirubin 0.4 mg/dL (0.2-1.0) Direct Bilirubin 0.1 mg/dL (0.0-0.2) Aspartate Amino Transf (AST/SGOT) 14 U/L (15-37) Alanine Aminotransferase (ALT/SGPT) 26 U/L (14-59) Alkaline Phosphatase 148 U/L (46-116) Creatine Kinase 60 U/L (26-192) Troponin I Quantitative < 0.017 ng/mL (0-0.055) < 0.017 ng/mL (0-0.055) PI-Nqm-Z-Type Natriuretic Peptide 197 pg/mL (0-124) Total Protein 7.5 g/dL (6.4-8.2) Albumin 3.5 g/dL (3.4-5.0) Triglycerides Level 206 mg/dL (0-150) Cholesterol Level 215 mg/dL (0-200) LDL Cholesterol, Calculated 145 mg/dL (0-100) VLDL Cholesterol, Calculated 41 mg/dL (0-40) Non-HDL Cholesterol Calculated 186 mg/dL (0-129) HDL Cholesterol 29 mg/dL (40-60) Cholesterol/HDL Ratio 7.0 Lipase 142 U/L (73-393) Thyroid Stimulating Hormone (TSH) 2.479 uIU/mL (0.358-3.740) Urine Collection Type Unknown Urine Color Yellow Urine Clarity Clear Urine pH 6.5 Urine Specific [place] <=1.005 Urine Protein Neg (NEG-TRACE) Urine Glucose (UA) Neg mg/dL (NEG) Urine Ketones (Stick) Neg mg/dL (NEG) Urine Blood Small (NEG) Urine Nitrite Neg (NEG) Urine Bilirubin Neg (NEG) Urine Urobilinogen Dipstick 0.2 mg/dL (0.2 mg/dL) Urine Leukocyte Esterase Neg (NEG) Urine RBC 1-2 /HPF (0-2) Urine WBC 0 /HPF (0-4) Urine Squamous Epithelial Cells Mod /LPF Urine Bacteria Few /HPF (0-FEW) Urine Opiates Screen Neg (NEG) Urine Methadone Screen Neg (NEG) Urine Barbiturates Neg (NEG) Urine Phencyclidine Screen Neg (NEG) Urine Amphetamine/Methamphetamine Neg (NEG) Urine Benzodiazepines Screen Neg (NEG) Urine Cocaine Screen Neg (NEG) Urine Cannabinoids Screen Neg (NEG) Urine Ethyl Alcohol Neg (NEG) Bedside Urine HCG, Qualitative hcg negative (Negative) Procalcitonin < 0.10 ng/mL (0.00-0.10) Test 11/28/19 06:20 White Blood Count 10.1 x10^3/uL (4.0-11.0) Red Blood Count 4.46 x10^6/uL (3.50-5.40) Hemoglobin 13.1 g/dL (12.0-15.5) Hematocrit 39.3 % (36.0-47.0) Mean Corpuscular Volume 88 fL (79-100) Mean Corpuscular Hemoglobin 30 pg (25-35) Mean Corpuscular Hemoglobin Concent 34 g/dL (31-37) Red Cell Distribution Width 14.7 % (11.5-14.5) Platelet Count 283 x10^3/uL (140-400) Physical Exams Chest: Symmetric Heart: RRR Extremities: No Edema Neurology: alert, oriented, follow commands Assessment Assessment 1. Chest pain, atypical. Initial trop negative. EKG without significant acute changes. CT with bilateral infiltrates. NT pro BNP only mildly elevated. No significant improvement with IV Lasix. Awaiting COVID 2. Elevated d-dimer; CTA negative for PE 3. Hypokalemia; replaced 4. Tobaccoism; discussed/encouraged cessation 5. H/o meth use; has been clean. UDS negative 6. Dyslipidemia Recommendations Await COVID Consider outpatient echo to assess LV systolic function Supportive care JOSÉ BENAVIDEZ APRN Nov 28, 2019 08:53
[2019-11-28 11:00] VITALS: BP 105/60
[2019-11-28 15:00] VITALS: BP 105/60
[2019-11-28] MEDS ORDERED: CEFD300C PO (15:41)
[2019-11-28] MEDS ORDERED: AZIT250T PO (15:41)
[2019-11-28] MEDS ORDERED: HYDR-2155 PO (15:41)
--- NOTE | 2019-11-28 16:45 | NUR ---
Discharge Note: [facility] Discharge instructions and discharge home medications reviewed with Patient and a copy given. All questions have been answered and understanding verbalized. All belongings taken with pt at discharge. Discontinued Peripheral IV Patient discharged to Home or Self Care with Self. This RN walked pt to spouse's vehicle
--- NOTE | 2019-11-28 17:52 | DS ---
DATE OF DISCHARGE: HOSPITAL COURSE: The patient is a 34-year-old female patient who was admitted with chest pain. She has 2 sets of cardiac enzymes that ruled out acute myocardial infarction. She was seen in consultation by the resin remover and she was found to have elevated D-dimer; however, her CT angio was negative for PE; however, the CT scan also showed that she has multiple mild interstitial opacities and ground glass opacities bilaterally, could be secondary to mild edema; a component of small airway inflammation from pneumonia ____ and she was obviously suspected for possible coronavirus infection and she was swabbed for coronavirus by PCR, the result of which is still pending. Apart from chest pain, the patient has been asymptomatic. She has been afebrile, hemodynamically stable. Her white cell count was normal. She was treated for possible atypical pneumonia versus community-acquired pneumonia with IV ceftriaxone as well as Zithromax. PHYSICAL EXAMINATION: GENERAL: When I saw her this afternoon, she was resting flat, comfortably in bed, in no apparent respiratory distress. There was no pallor, jaundice, cyanosis or thyromegaly. No jugular venous distention. No limb edema. VITAL SIGNS: Her heart rate was 88, blood pressure was 105/60, temperature was 96.9, respiratory rate was 16, and oxygen saturation was 98% on room air. HEAD, EYES, EARS, NOSE AND THROAT: Showed normocephalic, atraumatic. NECK: Supple. HEART: Showed normal first and second heart sounds. No gallop or murmur. CHEST: Clear to auscultation. No crepitation or rhonchi. ABDOMEN: Distended, soft, nontender. NEUROLOGIC: She is grossly intact. LABORATORY DATA: This morning showed a white cell count of 10,100, hemoglobin 13, hematocrit 39, MCV 88 and platelet count 283,000. Her serum sodium was ____, potassium 3.6, chloride 105, bicarbonate 24, anion gap of 12, BUN of 11, creatinine 0.7, estimated GFR was 94 mL per minute. Her glucose was 100, calcium was 8.9. Total bilirubin, AST, ALT, alkaline phosphatase were normal. Her total protein was 7, albumin 3.2. Her serum triglycerides were 206, total cholesterol was 115, LDL was 145, VLDL was 41, HDL was 29, and the ratio was 7. Her procalcitonin was less than 0.10. TSH was 2.479. Her prothrombin time, INR and aPTT normal. Her D-dimer was high at 1.88. Urinalysis was negative and toxic screen was negative. DISCHARGE MEDICATIONS: She was discharged home to continue on following medications: Zithromax 250 mg daily for 4 more days, cefdinir 300 mg twice a day for 7 days, hydrocodone/APAP 5/325 one tablet every 6 hours as needed. Should continue on Wellbutrin 75 mg daily, Celebrex 200 mg twice a day, hydroxyzine pamoate 200 mg at bedtime, lamotrigine 400 mg at bedtime, lamotrigine 100 mg at bedtime, olanzapine for Zyprexa 10 mg 3 times a day as needed. FINAL DISCHARGE DIAGNOSES: 1. Suspected COVID-19 infection. 2. Viral versus atypical pneumonia. 3. Depression. 4. Hyperlipidemia. 5. Migraine headache. The patient was advised to self-quarantine and she can call us tomorrow to get the result of her COVID-19 test by PCR. JEANNE WRIGHT MD DR: JUNAID/michael JOB#: [id number] / [id number]
[2019-11-28] MEDS ORDERED: ATORVASTATIN CALCIUM 10 MG TABLET. PO SCH (21:00)
[2019-11-28] MEDS ORDERED: AZITHROMYCIN 250 MG TABLET. PO SCH (22:00)
--- NOTE | 2019-11-29 08:44 | NUR ---
IP: notified patient of COVID result, discussed precautions, there were no questions at this time.
== END 2019-11-28 16:45 | disposition home or self-care (01) | DRG 177 ==
LOC: ER 21:47 → 1 SOUTH 23:45 → UNDOADMIN 23:45 → ICU 23:45 → 1 SOUTH 11-27 02:07 → UNDOADMIN 11-27 02:07
PROVIDERS: ADMIT Hospitalist; ATTEND Internal Medicine
DX: U07.1 COVID-19 (principal); J12.89 Other viral pneumonia; J98.11 Atelectasis; F32.9 Major depressive disorder, single episode, unspecified; F17.210 Nicotine dependence, cigarettes, uncomplicated; E87.6 Hypokalemia; E78.5 Hyperlipidemia, unspecified; E78.00 Pure hypercholesterolemia, unspecified; E66.01 Morbid (severe) obesity due to excess calories; E11.9 Type 2 diabetes mellitus without complications; G43.909 Migraine, unspecified, not intractable, without status migrainosus; F41.9 Anxiety disorder, unspecified; Z82.49 Family history of ischemic heart disease and other diseases of the circulatory system; Z90.710 Acquired absence of both cervix and uterus; Z68.37 Body mass index [BMI] 37.0-37.9, adult; Z88.5 Allergy status to narcotic agent; Z90.49 Acquired absence of other specified parts of digestive tract
CPT/HCPCS: 36415; 71046; 71275; 80048; 80053; 80061; 80076; 80307; 81001; 81025; 82550; 83690; 83735; 83880; 84145; 84443; 84484; 85025; 85027; 85379; 85610; 85730; 93005; 96361; 96365; 96375; J0456; J0696; J1650; J2405; J2765; J3010; J7120; J8540; Q9967; 99285-25; U0003-CS

== ENCOUNTER 2020-11-17 10:43 | Emergency (ER) | payer MEDICARE ==
[~2020-11-17 10:43] MED LIST: AZIT250T PO; BUPR150T11 PO; CEFD300C PO; CELE200C PO; HYDR-2155 PO; HYDR50CA PO; LAMO100T37 PO; LAMO200T6 PO; OLAN10TA3 PO
== END 2020-11-17 10:45 | disposition left against medical advice (07) ==
LOC: ER 10:43
DX: R06.02 Shortness of breath (principal); R42 Dizziness and giddiness; Z53.21 Procedure and treatment not carried out due to patient leaving prior to being seen by health care provider